=== PATIENT | male | born 1970 | race Two or more races ===

== ENCOUNTER 2019-10-10 08:00 | Outpatient (CLI) | payer OTHER | END 2019-10-10 09:00 | disposition home or self-care (01) | LOC: RAD 08:00 | DX: M48.02 Spinal stenosis, cervical region (principal); M47.12 Other spondylosis with myelopathy, cervical region; M50.021 Cervical disc disorder at C4-C5 level with myelopathy; M47.23 Other spondylosis with radiculopathy, cervicothoracic region; M50.13 Cervical disc disorder with radiculopathy, cervicothoracic region; M50.123 Cervical disc disorder at C6-C7 level with radiculopathy; M50.01 Cervical disc disorder with myelopathy, high cervical region; M50.122 Cervical disc disorder at C5-C6 level with radiculopathy; S19.85XA Other specified injuries of pharynx and cervical esophagus, initial encounter; R13.14 Dysphagia, pharyngoesophageal phase; M48.061 Spinal stenosis, lumbar region without neurogenic claudication; M41.56 Other secondary scoliosis, lumbar region; M51.36 Other intervertebral disc degeneration, lumbar region; M51.37 Other intervertebral disc degeneration, lumbosacral region; M54.40 Lumbago with sciatica, unspecified side; E66.09 Other obesity due to excess calories ==

== ENCOUNTER 2020-10-29 07:47 | Outpatient (CLI) | payer OTHER | END 2020-10-29 07:53 | disposition home or self-care (01) | LOC: RAD 07:47 | PROVIDERS: ATTEND Neurological Surgery | DX: M48.061 Spinal stenosis, lumbar region without neurogenic claudication (principal); M41.56 Other secondary scoliosis, lumbar region; M47.26 Other spondylosis with radiculopathy, lumbar region; M51.36 Other intervertebral disc degeneration, lumbar region; M51.37 Other intervertebral disc degeneration, lumbosacral region; M54.40 Lumbago with sciatica, unspecified side; E66.09 Other obesity due to excess calories ==

== ENCOUNTER 2021-12-07 10:37 | Outpatient (CLI) | payer OTHER | END 2021-12-07 10:43 | disposition home or self-care (01) | LOC: RAD 10:37 | PROVIDERS: ATTEND Neurological Surgery | DX: M48.061 Spinal stenosis, lumbar region without neurogenic claudication (principal); M54.40 Lumbago with sciatica, unspecified side; M41.56 Other secondary scoliosis, lumbar region; M51.36 Other intervertebral disc degeneration, lumbar region; M51.37 Other intervertebral disc degeneration, lumbosacral region; E66.09 Other obesity due to excess calories ==

== ENCOUNTER 2022-10-23 12:53 | Outpatient (CLI) | payer OTHER | END 2022-10-23 13:01 | disposition home or self-care (01) | LOC: RAD 12:53 | PROVIDERS: ATTEND Neurological Surgery | DX: M48.06 Spinal stenosis, lumbar region (principal); M41.56 Other secondary scoliosis, lumbar region; M47.26 Other spondylosis with radiculopathy, lumbar region; M51.36 Other intervertebral disc degeneration, lumbar region; M51.37 Other intervertebral disc degeneration, lumbosacral region; M54.40 Lumbago with sciatica, unspecified side; E66.09 Other obesity due to excess calories ==

== ENCOUNTER 2023-06-11 13:09 | Outpatient (CLI) | payer OTHER | END 2023-06-11 13:15 | disposition home or self-care (01) | LOC: RAD 13:09 | PROVIDERS: ATTEND Neurological Surgery | DX: M48.06 Spinal stenosis, lumbar region (principal); M41.56 Other secondary scoliosis, lumbar region; M47.26 Other spondylosis with radiculopathy, lumbar region; M51.36 Other intervertebral disc degeneration, lumbar region; M51.37 Other intervertebral disc degeneration, lumbosacral region; M54.40 Lumbago with sciatica, unspecified side; E66.09 Other obesity due to excess calories; M72.2 Plantar fascial fibromatosis; M79.673 Pain in unspecified foot ==

== ENCOUNTER 2025-08-08 08:40 | Outpatient (CLI) | payer OTHER | END 2025-08-08 08:44 | disposition home or self-care (01) | LOC: RAD 08:40 | PROVIDERS: ATTEND Neurological Surgery | DX: M48.06 Spinal stenosis, lumbar region (principal); G89.29 Other chronic pain; M48.02 Spinal stenosis, cervical region; M47.12 Other spondylosis with myelopathy, cervical region; M41.56 Other secondary scoliosis, lumbar region; M54.40 Lumbago with sciatica, unspecified side; M50.021 Cervical disc disorder at C4-C5 level with myelopathy; M47.26 Other spondylosis with radiculopathy, lumbar region; M47.23 Other spondylosis with radiculopathy, cervicothoracic region; M50.122 Cervical disc disorder at C5-C6 level with radiculopathy; M50.01 Cervical disc disorder with myelopathy, high cervical region; M50.123 Cervical disc disorder at C6-C7 level with radiculopathy; M43.13 Spondylolisthesis, cervicothoracic region; E66.09 Other obesity due to excess calories; S19.85XA Other specified injuries of pharynx and cervical esophagus, initial encounter; M99.73 Connective tissue and disc stenosis of intervertebral foramina of lumbar region; R13.14 Dysphagia, pharyngoesophageal phase ==